=== PATIENT | female | born 1960 | race Caucasian/White ===

== ENCOUNTER → 2016-04-28 | Outpatient (CLI) | payer OTHER ==
[~2016-04-28] MED LIST: ESTCR PO; PRLSR20 PO
[2016-04-28 15:15] LABS: INFLUENZA A PCR Neg for Influ A (NEG); INFLUENZA B PCR Neg for Influ B (NEG)
== END | disposition home or self-care (01) ==
LOC: C.LABPVFM 09:46
PROVIDERS: ATTEND Family Medicine
DX: L71.9 Rosacea, unspecified (principal)

== ENCOUNTER → 2016-07-04 | Outpatient (CLI) | payer OTHER ==
--- NOTE | 2016-07-05 15:02 | MAMMOGRAPHY REPORT ---
BILATERAL DIGITAL SCREENING MAMMOGRAM TOMOSYNTHESIS WITH CAD: 07/04/2016 CLINICAL HISTORY: Routine screening examination. TECHNIQUE: Breast tomosynthesis in addition to standard 2D mammography was performed. Current study was also evaluated with a Computer Aided Detection (CAD) system. COMPARISON: Comparison is made to exams dated: 06/22/2015 mammogram, 03/16/2015 ultrasound, 03/16/20 15 mammogram, 06/16/2014 mammogram, 06/10/2013 mammogram, and 06/04/2012 mammogram - [facility]. BREAST COMPOSITION: The tissue of both breasts is heterogeneously dense, which may obscure small ma sses. FINDINGS: No suspicious mass, architectural distortion or cluster of microcalcifications is seen. IMPRESSION: ACR BI-RADS CATEGORY 1: NEGATIVE There is no mammographic evidence of malignancy. A 1 year screening mammogram is recommended. The p atient will receive written notification of the results. Approximately 10% of breast cancers are not detected with mammography. A negative mammographic repor t should not delay biopsy if a clinically suggestive mass is present. Maddie wild/tre:07/04/2016 17:19:34 Field Producer: Geraldine JOYCE(Silvestre)(Brian), [facility] letter sent: Normal 1/2 BI-RADS Code: ACR BI-RADS Category 1: Negative
== END | disposition home or self-care (01) ==
LOC: C.MAMM 16:59
PROVIDERS: ATTEND Obstetrics & Gynecology
DX: Z12.31 Encounter for screening mammogram for malignant neoplasm of breast (principal)

== ENCOUNTER → 2016-08-18 | Outpatient (CLI) | payer OTHER ==
[2016-08-18 13:09] LABS: BLOOD UREA NITROGEN 9 mg/dl (7-18); BUN/CREATININE RATIO 13.7 (10-20); CARBON DIOXIDE 29 mmol/L (21-32); CHLORIDE 106 mmol/L (98-107); CHOLESTEROL 181 mg/dl (0-200); CREATININE 0.67 mg/dl (0.60-1.20); GLUCOSE 77 mg/dl (70-99); POTASSIUM 3.7 mmol/L (3.5-5.1); SODIUM 141 mmol/L (136-145); TRIGLYCERIDES 51 mg/dl (0-150); VERY LOW DENSITY LIPOPROT CALC 10 mg/dl
[2016-08-18 13:10] LABS: CALCIUM 8.9 mg/dl (8.5-10.1)
[2016-08-18 13:13] LABS: CHOLESTEROL/HDL RATIO 3.5; HDL CHOLESTEROL 51 mg/dl; LDL CHOLESTEROL CALCULATED 120 mg/dl
== END | disposition home or self-care (01) ==
LOC: C.LABPVFM 08:20
PROVIDERS: ATTEND Nurse Practitioner
DX: R42 Dizziness and giddiness (principal); Z13.1 Encounter for screening for diabetes mellitus; Z13.220 Encounter for screening for lipoid disorders

== ENCOUNTER → 2017-07-10 | Outpatient (CLI) | payer OTHER ==
--- NOTE | 2017-07-11 14:56 | MAMMOGRAPHY REPORT ---
BILATERAL DIGITAL SCREENING MAMMOGRAM TOMOSYNTHESIS WITH CAD: 07/10/2017 CLINICAL HISTORY: Routine screening. Patient has no complaints. TECHNIQUE: Breast tomosynthesis in addition to standard 2D mammography was performed. Current study was also evaluated with a Computer Aided Detection (CAD) system. COMPARISON: Comparison is made to exams dated: 07/04/2016 mammogram, 06/22/2015 mammogram, 03/16/2015 ultrasound, 03/16/2015 mammogram, and 06/16/2014 mammogram - [facility]. BREAST COMPOSITION: The tissue of both breasts is heterogeneously dense, which may obscure small mas ses. FINDINGS: No suspicious masses, calcifications, or areas of architectural distortion are noted in ei ther breast. There has been no significant interval change compared to prior exams. IMPRESSION: ACR BI-RADS CATEGORY 1: NEGATIVE There is no mammographic evidence of malignancy. A 1 year screening mammogram is recommended. The pa tient will receive written notification of the results. Approximately 10% of breast cancers are not detected with mammography. A negative mammographic report should not delay biopsy if a clinically suggestive mass is present. Anya Calzada M.D. /:07/11/2017 07:36:07 Shaping Machine Tender: Geraldine JOYCE(Silvestre)(Brian), [facility] letter sent: Normal 1/2 BI-RADS Code: ACR BI-RADS Category 1: Negative
== END | disposition home or self-care (01) ==
LOC: C.MAMM 17:01
PROVIDERS: ATTEND Obstetrics & Gynecology
DX: Z12.31 Encounter for screening mammogram for malignant neoplasm of breast (principal)

== ENCOUNTER 2021-02-25 18:50 | Observation (INO) ==
[2021-02-25] MEDS ORDERED: ONDANSETRON INJ 2 MG/ML 2 ML VIAL IV STA (19:20)
[2021-02-25] MEDS ORDERED: ONDANSETRON INJ 2 MG/ML 2 ML VIAL ONE (19:22)
--- NOTE | 2021-02-25 20:17 | Emergency Department Note ---
History of Present Illness General Chief complaint: Fall Time Seen by Provider: 02/25/21 19:59 Source: patient and family History of Present Illness Provider complaint: Syncopal episode Onset (ago): hour(s) Location: head Pain Consistency: + now resolved Maximum Pain Intensity: 0 Quality: + other (Passed out twice) Relieved By: + none Associated symptoms: + cough, + fever/chills and + syncope; no chest pain, no nausea/vomiting or no shortness of breath This is a 60-year-old female diagnosed with COVID-19 recently presenting with 2 syncopal episodes starting at 4:30 PM today. She was with her boyfriend when she passed out. He was able to catch her before she fell to the ground. She did not have any seizure-like activity. She had a second syncopal episode about an hour later. Again she did not have any trauma from this. Her boyfriend was with her. She has had Covid symptoms since February 17. She has had a fever and cough but denies any shortness of breath. She has had loss of taste and smell as well as diarrhea. She states she was going to the bathroom to have diarrhea when she passed out. She denies any abdominal pain, chest discomfort or shortness of breath. She denies any urinary symptoms. She states she just feels very tired right now. She is not vaccinated for COVID-19 stating that she just did not want the vaccination. She does state that she slept 6 hours last night. Home Medications Medication Instructions Recorded Confirmed Type blood sugar diagnostic (Easy Touch #50 ea 02/03/19 02/20/21 Rx Test Strip) blood-glucose meter (Easy Touch #1 ea 02/03/19 02/20/21 Rx Glucose Monitor) lancets 30 gauge (Easy Comfort #50 ea 02/03/19 02/20/21 Rx Lancets) omeprazole 20 mg capsule,delayed See Rx Instructions .ROUTE 12/13/20 02/25/21 Rx release .COMPLEX #90 cap amoxicillin 875 mg-potassium 1 tab PO Q12H #20 tab 02/08/21 02/25/21 Rx clavulanate 125 mg tablet (Augmentin) prednisone 20 mg tablet See Rx Instructions PO .COMPLEX 02/08/21 02/25/21 Rx #30 tab codeine 10 mg-guaifenesin 100 mg/5 5 ml PO Q6H PRN #118 ml 02/20/21 02/25/21 Rx mL oral liquid Allergies Allergy/AdvReac Type Severity Reaction Status Date / Time No Known Allergies Allergy Unknown Verified 02/25/21 20:29 Past Med/Surg History Medical History (Updated 02/25/21 @ 23:32 by Sarthak Florian MD) Atrophic vaginitis Cancer BCC Cellulitis of right upper eyelid Chest wall pain Dermatitis Dyspareunia Fatigue Hypoglycemia Rib contusion Sensation of foreign body in esophagus Shingles Weight gain Surgical History History of appendectomy History of colonoscopy History of tooth extraction History of total abdominal hysterectomy and bilateral salpingo-oophorectomy Hx of section Hx of laparoscopy Hx of LASIK Family History Father Diabetes Mother Bile duct cancer Diabetes Father Prostate cancer Sister History of prediabetes Other Colitis Denies family history of Ovarian cancer Breast cancer Colorectal cancer Social History Smoking Status: Former smoker Cigarettes Per Day: QUIT 26 YEARS AGO; Second Hand Exposure: No; Hx Alcohol Use: No Hx Substance Use: No Preferred Language: Ugandan Communication Ability: Effective Food Technology Teacher Required: No Beliefs That Will Affect Care: None Current Living Situation: Alone Feels Safe at Home: Yes Assistive Devices: Glasses Review of Systems See HPI for pertinent positives & negatives. and A total of 10 systems reviewed and were otherwise negative Physical Exam Vital Signs Vital Signs - 24 hr 02/25/21 18:58 02/25/21 21:05 02/25/21 21:08 Temperature 36.9 C Temperature Source Temporal Artery Scan Pulse Rate - Lying 74 Pulse Rate - Sitting 84 Pulse Rate - Standing 89 Pulse Rate 76 Pulse Rate [Left Apical] 73 Pulse Rhythm [Left Apical] Regular Pulse Strength [Left Apical] Normal Respiratory Rate 16 16 Respiratory Effort / Characteristics Non-Labored Respiratory Depth Normal Blood Pressure - Lying 108/60 Blood Pressure - Sitting 117/74 Blood Pressure- Standing 114/62 Blood Pressure 106/60 Blood Pressure [Left Arm] 114/62 Blood Pressure Mean 75 Blood Pressure Mean [Left Arm] 79 Blood Pressure Position Sitting Pulse Oximetry 98 97 Oxygen Delivery Method Room Air Room Air Sepsis Recent Fever Within 48 Hours No Sepsis New/Unexplained Change in Mental Status No Sepsis Action Taken by Nursing No Action Required Constitutional: Vital signs reviewed. Eyes: Pupils are equal round reactive to light. Conjunctiva are noninjected. ENT: Pharynx is clear without erythema or exudate. Mucous membranes are dry. Neck supple without meningeal signs. Respiratory: Clear to auscultation bilaterally. Breath sounds are equal bilaterally. Cardiovascular: Regular rate and rhythm. No rubs or gallops. GI: Soft, nondistended and nontender. Bowel sounds are present. Musculoskeletal: No peripheral edema. No lower extremity tenderness. Integumentary: No cyanosis. or jaundice. Neurological: The patient is drowsy and hypophonic. Psychiatric: Normal affect. Course Administered Medications Sodium Chloride (Nss 1000ml) 1,000 mls @ 125 mls/hr IV .Q8H [facility] Stop: 03/27/21 20:29 Last Admin: 02/25/21 20:52 Dose: 125 mls/hr Documented by: [id number] Discontinued Medications Potassium Chloride (K Finn / Wtr) 10 meq in 100 mls @ 100 mls/hr IV Q1H [facility] Stop: 02/25/21 22:44 Last Admin: 02/25/21 22:26 Dose: 100 mls/hr Documented by: [id number] Infusion: 02/25/21 22:18 Dose: 0 mls/hr Documented by: [id number] Admin: 02/25/21 21:04 Dose: 100 mls/hr Documented by: [id number] Ondansetron HCl (Ondansetron Inj 2 Mg/Ml 2 Ml Vial) 4 mg IV NOW STA Stop: 02/25/21 19:21 Last Admin: 02/25/21 19:44 Dose: 4 mg Documented by: [id number] Ondansetron HCl (Ondansetron Inj 2 Mg/Ml 2 Ml Vial) Confirm Administered Dose 4 mg .ROUTE .STK-MED ONE Stop: 02/25/21 19:23 Last Admin: 02/25/21 19:44 Dose: Not Given Documented by: [id number] Medical Decision Making Differential Diagnosis Vasovagal syncope, orthostatic hypotension, dehydration, pulmonary embolism, dysrhythmia, metabolic derangement Medical Records Attestation: I reviewed the patient's medical records. I did perform a limited focused review of portions of the patient's old chart on the electronic medical record. The patient was seen by her PCP for Covid-like symptoms. She had a positive Covid test at that time on February 20. Home Medications Current Medication List: was personally reviewed by me Laboratory Data Attestation: I reviewed the patient's lab results. Result diagrams: 02/25/21 19:15 02/25/21 19:15 Lab Results 02/25/21 02/25/21 02/25/21 Range/Units 19:15 19:15 19:15 WBC 10.16 (4.8-10.8) K/uL RBC 4.19 L (4.2-5.4) M/uL Hgb 12.1 (12.0-16.0) g/dL Hct 35.1 L (37-47) % MCV 83.8 (80-100) fL MCH 28.9 (25-34) pg MCHC 34.5 (32-36) g/dL RDW Std Deviation 39.6 (36.4-46.3) fL RDW Coeff of Hussein 13.1 (11.5-14.5) % Plt Count 156 (130-400) K/uL MPV 11.1 H (7.4-10.4) fL Immature Gran % (Auto) 0.2 % Neut % (Auto) 81.4 % Lymph % (Auto) 11.9 % Sunflower % (Auto) 6.1 % Eos % (Auto) 0.4 % Baso % (Auto) 0.0 % Neut # (Auto) 8.27 H (1.4-6.5) K/uL Lymph # (Auto) 1.21 (1.2-3.4) K/uL Sunflower # (Auto) 0.62 H (0.11-0.59) K/uL Eos # (Auto) 0.04 (0-0.5) K/uL Baso # (Auto) 0.00 (0-0.2) K/uL Immature Gran # (Auto) 0.02 (0.00-0.02) K/uL D-Dimer Cancelled ABG pH (7.35-7.45) ABG pCO2 (35-46) mmHg ABG pO2 (80-95) mmHg ABG HCO3 (19-24) mmol/L ABG O2 Saturation (90-95) % ABG Base Excess (-9-1.8) mEq/L Geoffrey Test (Pos) Barometric Pressure mm/Hg Oxygen Given Sodium 131 L (136-145) mmol/L Potassium 2.7 L (3.5-5.1) mmol/L Chloride 95 L (98-107) mmol/L Carbon Dioxide 25 (21-32) mmol/L Anion Gap 11.0 (3-11) BUN 7 (7-18) mg/dl Creatinine 0.58 L (0.6-1.2) mg/dl Est Cr Clr Drug Dosing Not Reportable Est GFR ( Amer) 116.1 ml/min Est GFR (Non-Af Amer) 100.2 ml/min BUN/Creatinine Ratio 11.3 (10-20) Glucose 118 H (70-99) mg/dl Calcium 8.8 (8.5-10.1) mg/dl Magnesium 2.0 (1.8-2.4) mg/dl Total Bilirubin 0.4 (0.2-1) mg/dl AST 12 L (15-37) U/L ALT 23 (12-78) Alkaline Phosphatase 49 (45-117) U/L Troponin I < 0.015 (0-0.045) ng/ml Total Protein 6.6 (6.4-8.2) gm/dl Albumin 3.5 (3.4-5.0) gm/dl Globulin 3.1 (2.5-4.0) gm/dl Albumin/Globulin Ratio 1.1 (0.9-2) TSH 1.960 (0.300-4.500) uIu/ml 02/25/21 02/25/21 Range/Units 20:45 22:48 WBC (4.8-10.8) K/uL RBC (4.2-5.4) M/uL Hgb (12.0-16.0) g/dL Hct (37-47) % MCV (80-100) fL MCH (25-34) pg MCHC (32-36) g/dL RDW Std Deviation (36.4-46.3) fL RDW Coeff of Hussein (11.5-14.5) % Plt Count (130-400) K/uL MPV (7.4-10.4) fL Immature Gran % (Auto) % Neut % (Auto) % Lymph % (Auto) % Sunflower % (Auto) % Eos % (Auto) % Baso % (Auto) % Neut # (Auto) (1.4-6.5) K/uL Lymph # (Auto) (1.2-3.4) K/uL Sunflower # (Auto) (0.11-0.59) K/uL Eos # (Auto) (0-0.5) K/uL Baso # (Auto) (0-0.2) K/uL Immature Gran # (Auto) (0.00-0.02) K/uL D-Dimer < 190 ABG pH 7.48 H (7.35-7.45) ABG pCO2 33 L (35-46) mmHg ABG pO2 79 L (80-95) mmHg ABG HCO3 24 (19-24) mmol/L ABG O2 Saturation 96.5 H (90-95) % ABG Base Excess 0.9 (-9-1.8) mEq/L Geoffrey Test POS (Pos) Barometric Pressure 737.5 mm/Hg Oxygen Given ROOM AIR Sodium (136-145) mmol/L Potassium (3.5-5.1) mmol/L Chloride (98-107) mmol/L Carbon Dioxide (21-32) mmol/L Anion Gap (3-11) BUN (7-18) mg/dl Creatinine (0.6-1.2) mg/dl Est Cr Clr Drug Dosing Est GFR ( Amer) ml/min Est GFR (Non-Af Amer) ml/min BUN/Creatinine Ratio (10-20) Glucose (70-99) mg/dl Calcium (8.5-10.1) mg/dl Magnesium (1.8-2.4) mg/dl Total Bilirubin (0.2-1) mg/dl AST (15-37) U/L ALT (12-78) Alkaline Phosphatase (45-117) U/L Troponin I (0-0.045) ng/ml Total Protein (6.4-8.2) gm/dl Albumin (3.4-5.0) gm/dl Globulin (2.5-4.0) gm/dl Albumin/Globulin Ratio (0.9-2) TSH (0.300-4.500) uIu/ml Imaging Data Attestation: I personally reviewed and interpreted this imaging study as follows: My Impression: Chest x-ray per my interpretation shows no acute cardiopulmonary process. ECG Data Attestation: I personally reviewed and interpreted this ECG as follows: Indication: + syncope Rate (beats per minute): 74 Rhythm: + normal sinus ECG [place]: + Normal ECG ST segments: no ST elevation ECG Findings: no PVCs MDM Narrative I did evaluate the patient as noted above. She is presenting with 2 syncopal episodes in the setting of COVID-19 infection. She feels very tired but otherwise has no complaints currently. She has had a cough, loss of taste and smell as well as fever. She denies any chest pain or shortness of breath. IV access was established. I did place an order for continuous cardiac monitoring. The monitor showed normal sinus rhythm at a rate of 78 bpm. I did order and personally review the patient's 12-lead EKG as described above. There is no evidence of preexcitation, dysrhythmia or acute ischemia. I did order and personally reviewed the images of the patient's chest x-ray as described above. Chest x-ray is unremarkable. I did order and review the patient's blood work as noted in the electronic medical record. CBC is unremarkable without leukocytosis or anemia. D-dimer is less than 190. Electrolytes demonstrate a sodium of 131, potassium of 2.7 and chloride of 95. Magnesium is within normal limits. I did treat her with IV KCl x2. LFTs and troponin are unremarkable. TSH is within normal limits. I did reassess the patient. She is not orthostatic. She was given normal saline but still appears weak. She will be hospitalized for further care and evaluation. I did discuss case with the hospitalist and outsole caser. The hospitalist requested an ABG which I ordered. pH is 7.48 PaCO2 is 33 and PaO2 is 79. Impression & Plan Syncope, Acute hypokalemia, Acute hyponatremia, Diarrhea, COVID-19 Discharge Plan Visit Data Chief Complaint: Fall ED Provider: Sarthak Florian Discharge Problem: Syncope, Acute hypokalemia, Acute hyponatremia, Diarrhea, COVID-19 Patient Disposition: Being Evaluated by Hospitalist Forms Stand Alone Forms: My [facility] Prescriptions Prescriptions: No Action prednisone 20 mg tablet See Rx Instructions PO .COMPLEX Qty: 30 RF: 0 amoxicillin-pot clavulanate [Augmentin] 875-125 mg tablet 1 tab PO Q12H Qty: 20 RF: 0 (DME) blood-glucose meter [Easy Touch Glucose Monitor] misc See Rx Instructions .ROUTE .MEDSUPPLY Qty: 1 RF: 0 (DME) Easy Touch Test Strip strip See Rx Instructions .ROUTE .MEDSUPPLY Qty: 50 RF: 3 (DME) lancets [Easy Comfort Lancets] 30 gauge misc See Rx Instructions .ROUTE .MEDSUPPLY Qty: 50 RF: 2 codeine-guaifenesin 10-100 mg/5 mL liquid 5 ml PO Q6H PRN (Reason: cough) Qty: 118 RF: 0 omeprazole 20 mg capsule,delayed release(DR/EC) See Rx Instructions .ROUTE .COMPLEX Qty: 90 RF: 3 Referrals Referrals: Courtney Arroyo CRNP [Primary Care Provider] -
[2021-02-25 20:22] LABS: Eosinophils # (auto) 0.04 K/uL (0-0.5); Eosinophils % (auto) 0.4 %; Hematocrit (blood only) 35.1 % (37-47); Hemoglobin 12.1 g/dL (12.0-16.0); Immature Granulocytes # (auto) 0.02 K/uL (0.00-0.02); Immature Granulocytes % (auto) 0.2 %; Lymphocytes # (auto) 1.21 K/uL (1.2-3.4); Lymphocytes % (auto) 11.9 %; Mean Corpuscular Hemoglobin 28.9 pg (25-34); Mean Corpuscular Hgb Conc 34.5 g/dL (32-36); Mean Corpuscular Volume 83.8 fL (80-100); Mean Platelet Volume 11.1 fL (7.4-10.4); Monocytes # (auto) 0.62 K/uL (0.11-0.59); Monocytes % (auto) 6.1 %; Neutrophils # (auto) 8.27 K/uL (1.4-6.5); Neutrophils % (auto) 81.4 %; Platelet Count 156 K/uL (130-400); RDW Coefficient of Variation 13.1 % (11.5-14.5); RDW Standard Deviation 39.6 fL (36.4-46.3); Red Blood Count 4.19 M/uL (4.2-5.4); White Blood Count 10.16 K/uL (4.8-10.8)
[2021-02-25] MEDS ORDERED: SODIUM CHLORIDE 0.9% 1000ML 1,000 ML IV SCH (20:30)
[2021-02-25 20:42] LABS: Alanine Aminotransferase 23 (12-78); Albumin Level 3.5 gm/dl (3.4-5.0); Aspartate Aminotransferase 12 U/L (15-37); BUN Creatinine Ratio 11.3 (10-20); Blood Urea Nitrogen 7 mg/dl (7-18); Calcium 8.8 mg/dl (8.5-10.1); Carbon Dioxide 25 mmol/L (21-32); Chloride 95 mmol/L (98-107); Est GFR (African American) 116.1 ml/min; Est GFR (Non-African American) 100.2 ml/min; Glucose 118 mg/dl (70-99); Potassium 2.7 mmol/L (3.5-5.1); Sodium 131 mmol/L (136-145)
[2021-02-25 20:52] LABS: Albumin Globulin Ratio 1.1 (0.9-2); Alkaline Phosphatase 49 U/L (45-117); Bilirubin,Total 0.4 mg/dl (0.2-1); Globulin 3.1 gm/dl (2.5-4.0); Total Protein 6.6 gm/dl (6.4-8.2); Troponin I < 0.015 ng/ml (0-0.045)
[2021-02-25] MEDS: POTASSIUM CHLORIDE / WTR 10 MEQ/100 ML PLCT IV SCH ×2 (21:04→22:26)
[2021-02-25 21:06] LABS: D Dimer < 190 ug/L FEU (0-500)
--- NOTE | 2021-02-25 22:55 | History & Physical Report ---
Date of Service February 25, 2021 Assessment & Plan (1) Syncope: Plan: 60 yo F w/ pMHx. of Mitral valve prolapse, GERD, headache, and COVID-19 + presenting for syncopal event X2. Syncope, unclear etiology potentially due to dehydration 2/2 poor intake and diarrhea will also want to rule out cardiac causes including structural or 2/2 electrolyte abnormalities EKG - NSR CXR without acute abnormalities noted troponin nl., TSH nl., CO2 not elevated on blood gas - IVF - ECHO ordered given prior history of mitral prolapse - monitor on a telemetry floor - orthostatic BP's Hypokalemia, K 2.7 likely due to poor intake, vomiting, and diarrhea 2 k-rider - recheck with AM labs and continue to replete COVID-19, not vaccinated symptoms include diarrhea, loss of taste, headache - steroids not indicated as patient is no hypoxic Sinus infection - finish out last day of Augmentin GERD - continue Omeprazole Code: full Diet: regular, IVF DVT: Lovenox History of Present Illness Chief Complaint: syncope Primary Care Provider: DEBI Syedmaynor is here for 2 episodes of syncope. The first episode was at 4:30 PM and she did not notice any dizziness or that the room was spinning but felt, "off". She was walking prior to the event and had not just gotten up. She felt tired after the first event and then went to go to the bathroom and had a second event where she lost continence to bowels. She has never passed out prior. She was feeling tired and weak after regaining consciousness. She was diagnosed with mitral prolapse 15-20 years ago. She did not hit her head and did not have any shaking or seizure like activity with the event. She did not bite her tongue. She was positive for COVID-19 with symptoms that developed on February 17. She has lost her sense of taste and has not been eating much over the last week with 5lbs weight loss. She has also had diarrhea and has a cough. She does not have shortness of breath. She admits to a headache that has been going on for the last 2 weeks that is not the, "worst headache of her life". Allergies Allergy/AdvReac Type Severity Reaction Status Date / Time No Known Allergies Allergy Unknown Verified 02/25/21 20:29 Home Medications Medication Instructions Recorded Confirmed Type blood sugar diagnostic (Easy Touch #50 ea 02/03/19 02/20/21 Rx Test Strip) blood-glucose meter (Easy Touch #1 ea 02/03/19 02/20/21 Rx Glucose Monitor) lancets 30 gauge (Easy Comfort #50 ea 02/03/19 02/20/21 Rx Lancets) omeprazole 20 mg capsule,delayed See Rx Instructions .ROUTE 12/13/20 02/25/21 Rx release .COMPLEX #90 cap amoxicillin 875 mg-potassium 1 tab PO Q12H #20 tab 02/08/21 02/25/21 Rx clavulanate 125 mg tablet (Augmentin) prednisone 20 mg tablet See Rx Instructions PO .COMPLEX 02/08/21 02/25/21 Rx #30 tab codeine 10 mg-guaifenesin 100 mg/5 5 ml PO Q6H PRN #118 ml 02/20/21 02/25/21 Rx mL oral liquid Past Med/Surg History Medical History (Updated 02/25/21 @ 23:32 by Sarthak Florian MD) Atrophic vaginitis Cancer BCC Cellulitis of right upper eyelid Chest wall pain Dermatitis Dyspareunia Fatigue Hypoglycemia Rib contusion Sensation of foreign body in esophagus Shingles Weight gain Surgical History History of appendectomy History of colonoscopy History of tooth extraction History of total abdominal hysterectomy and bilateral salpingo-oophorectomy Hx of section Hx of laparoscopy Hx of LASIK Family History Father Diabetes Mother Bile duct cancer Diabetes Father Prostate cancer Sister History of prediabetes Other Colitis Denies family history of Ovarian cancer Breast cancer Colorectal cancer Social History Smoking Status: Never smoker Cigarettes Per Day: QUIT 26 YEARS AGO; Second Hand Exposure: No; Hx Alcohol Use: No Hx Substance Use: No Preferred Language: Lao Communication Ability: Effective Injection Mold Technician Required: No Beliefs That Will Affect Care: None Current Living Situation: Significant Other Feels Safe at Home: Yes Assistive Devices: None Review of Systems Review of Systems: Constitutional: denies fevers, night sweats admits chills, nausea and 2 episodes of vomiting Head: denies trauma, vision changes Neurologic: denies slurring of speech, focal weakness ENT: denies sore throat admits rhinorrhea, stuffiness Cardiac: denies chest pain, palpitations, leg edema Pulm.: denies shortness of breath, sputum production, hemoptysis admits cough GI: denies indigestion, constipation, blood in stool admits diarrhea : denies urgency, frequency, hematuria Physical Exam Constitutional: well developed and well nourished; no acute distress Eyes: PERRL, conjunctivae normal, anicteric sclerae ENMT: - congestion - no pain on percussion of maxillary or frontal sinus - TM's without erythema, fluid, bulging and normal light reflex without pain on pulling on the tragus or pressing on the mastoid process Neck: normal visual inspection Respiratory: normal respiratory effort, lungs clear to auscultation Cardiovascular: RRR, no murmur, no edema Gastrointestinal (Abdomen): normal bowel sounds, soft, nontender, no hepatosplenomegaly Musculoskeletal: Head/Neck/Chest: normocephalic and head atraumatic Neurologic: CN's II-XI intact bilaterally; not confused Speech / Cognition: normal speech Motor/Sensory: no tremor and normal movement Psychiatric: A+Ox3, euthymic affect Results & Data Results & Data ([facility]) Vital Signs (Past 12 Hours) Vital Signs Temp Pulse Pulse Resp BP BP Pulse Ox 02/25/21 21:08 73 16 114/62 97 02/25/21 18:58 36.9 C 76 16 106/60 98 Code Status & VTE Plan VTE Prophylaxis Plan VTE Prophylaxis will be ordered: Yes Supervising Physician Co-Signing Physician Notes Patient seen and examined, discussed with resident and I agree with the assessment and plan as above Resident Activity Tracking Resident Involvement: Resident Care Provided Care Provided: Adult Hospital Medicine
[2021-02-25 23:00] LABS: Base Excess ABG 0.9 mEq/L (-9-1.8); HCO3 ABG 24 mmol/L (19-24); Oxygen Saturation ABG 96.5 % (90-95); PCO2 ABG 33 mmHg (35-46); PO2 ABG 79 mmHg (80-95); pH ABG 7.48 (7.35-7.45)
[2021-02-25 23:02] LABS: Allen Test POS (Pos)
[2021-02-26 00:05] LABS: Appearance Urine Cloudy (Clear); Bacteria Urine Automated Negative (Negative); Bilirubin Urine Negative (Negative); Blood Urine Negative (Negative); Color Urine Yellow; Epithelial Cell Urine Auto 20-30 /lpf (0-5); Glucose Urine UA Negative (Negative); Ketones Urine 2+ (Negative); Leukocyte Esterase Urine Negative (Negative); Nitrite Urine Negative (Negative); Protein Urine Negative (Negative); RBC Urine Automated 0-4 /hpf (0-4); Specific Gravity Urine 1.012 (1.000-1.030); Urobilinogen Urine Negative (Negative); pH Urine 7.5 (4.5-7.5)
[2021-02-26] MEDS ORDERED: ACETAMINOPHEN 325 MG TAB PO PRN (01:08)
[2021-02-26] MEDS ORDERED: POLYETHYLENE (MIRALAX) 17 GM PACK PO PRN (01:08)
[2021-02-26] MEDS ORDERED: PATIENT'S HEIGHT AND/OR WEIGHT NEEDED STA (01:15)
[2021-02-26] MEDS: ENOXAPARIN INJ 40 MG/0.4 ML SYR SQ SCH ×3 (03:01→20:17)
[2021-02-26] MEDS: AMOXICILLIN/CLAVULANATE 875 MG TAB PO SCH ×2 (03:01→16:00)
[2021-02-26] MEDS: SODIUM CHLORIDE 0.9% 1000ML 1,000 ML IV SCH ×2 (03:02→11:45)
[2021-02-26 06:49] LABS: Eosinophils # (auto) 0.01 K/uL (0-0.5); Eosinophils % (auto) 0.2 %; Hematocrit (blood only) 32.3 % (37-47); Hemoglobin 11.1 g/dL (12.0-16.0); Immature Granulocytes # (auto) 0.01 K/uL (0.00-0.02); Immature Granulocytes % (auto) 0.2 %; Lymphocytes # (auto) 1.07 K/uL (1.2-3.4); Lymphocytes % (auto) 21.9 %; Mean Corpuscular Hgb Conc 34.4 g/dL (32-36); Mean Corpuscular Volume 84.3 fL (80-100); Mean Platelet Volume 9.7 fL (7.4-10.4); Monocytes # (auto) 0.47 K/uL (0.11-0.59); Monocytes % (auto) 9.6 %; Neutrophils # (auto) 3.33 K/uL (1.4-6.5); Neutrophils % (auto) 68.1 %; Platelet Count 162 K/uL (130-400); RDW Coefficient of Variation 13.2 % (11.5-14.5); RDW Standard Deviation 40.6 fL (36.4-46.3); Red Blood Count 3.83 M/uL (4.2-5.4); White Blood Count 4.89 K/uL (4.8-10.8)
[2021-02-26 07:10] LABS: BUN Creatinine Ratio 9.8 (10-20); Calcium 8.6 mg/dl (8.5-10.1); Creatinine Clr Calc Pharmacy 107.6 ml/min; Est GFR (African American) 125.3 ml/min; Est GFR (Non-African American) 108.1 ml/min; Potassium 3.3 mmol/L (3.5-5.1)
[2021-02-26] MEDS: PANTOprazole 40 MG TAB PO SCH (08:27)
[2021-02-26] MEDS: POTASSIUM CHLORIDE CRTAB 20 MEQ TABCR PO SCH ×3 (08:27→20:16)
--- NOTE | 2021-02-26 11:10 | XRay Report ---
XR chest 1V portable HISTORY: weakness, COVID COMPARISON: Chest and right rib series 02/19/2018. FINDINGS: The lungs are clear. Cardiac silhouette is normal in size. No pleural effusions. No pneumot horax. IMPRESSION: No acute process. ACT 112: Negative or not required by law. Electronically signed by: Satnam Ash M.D. 02/26/2021 11:08 AM
--- NOTE | 2021-02-26 13:01 | Electrocardiogram Report ---
Test Reason : Blood Pressure : / mmHG Vent. Rate : 074 BPM Atrial Rate : 074 BPM P-R Int : 156 ms QRS Dur : 074 ms QT Int : 388 ms P-R-T Axes : 082 029 062 degrees QTc Int : 430 ms Poor data quality, interpretation may be adversely affected Normal sinus rhythm Normal ECG When compared with ECG of 24-APR-2006 17:23, No significant change was found Confirmed by Cam Trujillo ([id number]) on 02/26/2021 1:01:09 PM Referred By: REFERRED SELF Confirmed By:Cam Trujillo
--- NOTE | 2021-02-26 17:44 | Hospitalist Progress Note ---
Date of Service February 26, 2021 Assessment & Plan (1) Syncope: Plan: 60 yo F w/ pMHx. of Mitral valve prolapse, GERD, headache, and COVID-19 + presenting for 2 episodes of syncope in the setting of Covid positive, diarrhea, and poor p.o. intake. Syncope, suspect 2/2 volume depletion 2/2 poor intake and diarrhea EKG: Normal sinus rhythm CXR: No acute abnormalities. Of note no patchy airspace opacities consistent with early/worsening Covid Troponin within normal limits TSH normal No hypercapnia on admission Echo pending Patient with 2 episodes of lightheadedness but no recurrent syncope since being in the hospital, normotensive Continue to monitor on telemetry, follow-up with echo above (2) Acute hypokalemia: Plan: Hypokalemic to 2.7 Poor p.o. intake, increased diarrhea Received 20 Meq IV infusion on admission, repeat remains hypokalemic at 3.3 P.o. improving, additional repletion ordered Recheck BMP in morning (3) COVID-19: Plan: COVID-19 positive CXR without acute findings No hypoxia/oxygen requirement On approximate day 10 of illness Has not been vaccinated No transaminitis No steroids/remdesivir/immunomodulators indicated at this time Monoclonal antibodies not indicated as patient has been admitted to the hospital Patient recently finished a course of Augmentin for sinus infection Lovenox DVT prophylaxis while inpatient Plan: Code: full Diet: regular, IVF DVT: Lovenox Admission and Anticipated Discharge Date Admission Date: February 25, 2021 Subjective Seen at bedside, continues to have 2 episodes of lightheadedness but no syncope today. Denies fever/chills/sweats. Endorses loss of taste and onset of Covid symptoms approximately 5. No hypoxia. Has had diarrhea with a cough. No shortn ess of breath/difficulty breathing, discussed etiology and potential causes of syncope, patient extremely concerned by her symptoms and would prefer to wait for completion of echo and for 24 hours of arrhythmia monitoring. Given diarrhea, acute hypokalemia, and been eval reasonable and will continue to observe overnight. No additional questions at time of assessment Review of Systems Review of Systems: 10 point review of systems negative except as noted otherwise and in subjective Physical Exam Physical Exam: General: A&Ox3. NAD. Cooperative. HEENT: Atraumatic, normocephalic. Visual acuity and hearing grossly intact. Pulm: CTAB A&P. -wheezes, -rales, -rhonchi. Symmetrical chest rise. No increase work of breathing. No respiratory distress. +sinus congestion, +dry cough Cardiac: RRR, -mrg. Radial pulses intact and symmetrical. Abdominal: Nontender, nondistended, soft. BS present. PG Care Time/CCT Total # of Minutes Spent Total Time Spent with Patient: Total time spent is greater than 50% in coordination of care (as documented) at patient's floor/unit and/or counseling patient: Coding Level of Care Code 35110 Subseq Obs Care Lvl 2 Diagnoses Syncope R55 Syncope type: unspecified Acute hypokalemia E87.6 COVID-19 U07.1 (1) Syncope Syncope type: unspecified Qualified Code(s): R55 - Syncope and collapse
--- NOTE | 2021-02-27 06:08 | Billing Data ---
Date of Service February 25, 2021 Coding Level of Care Code INT OBSERVATION CARE 50M LVL 2
[2021-02-27 08:13] LABS: BUN Creatinine Ratio 9.2 (10-20); Calcium 8.4 mg/dl (8.5-10.1); Creatinine Clr Calc Pharmacy 103.1 ml/min; Est GFR (African American) 123.6 ml/min; Est GFR (Non-African American) 106.6 ml/min; Magnesium 2.1 mg/dl (1.8-2.4); Potassium 3.6 mmol/L (3.5-5.1)
[2021-02-27] MEDS: ENOXAPARIN INJ 40 MG/0.4 ML SYR SQ SCH (09:20)
[2021-02-27] MEDS: PANTOprazole 40 MG TAB PO SCH (09:39)
--- NOTE | 2021-02-27 12:18 | Discharge Summary ---
Date of Service February 27, 2021 Admission HPI Per Admitting Provider Tayler Chery is here for 2 episodes of syncope. The first episode was at 4:30 PM and she did not notice any dizziness or that the room was spinning but felt, "off". She was walking prior to the event and had not just gotten up. She felt tired after the first event and then went to go to the bathroom and had a second event where she lost continence to bowels. She has never passed out prior. She was feeling tired and weak after regaining consciousness. She was diagnosed with mitral prolapse 15-20 years ago. She did not hit her head and did not have any shaking or seizure like activity with the event. She did not bite her tongue. She was positive for COVID-19 with symptoms that developed on February 17. She has lost her sense of taste and has not been eating much over the last week with 5lbs weight loss. She has also had diarrhea and has a cough. She does not have shortness of breath. She admits to a headache that has been going on for the last 2 weeks that is not the, "worst headache of her life". Admission Exam Per Admitting Provider Constitutional: well developed and well nourished; no acute distress Eyes: PERRL, conjunctivae normal, anicteric sclerae ENMT: - congestion - no pain on percussion of maxillary or frontal sinus - TM's without erythema, fluid, bulging and normal light reflex without pain on pulling on the tragus or pressing on the mastoid process Neck: normal visual inspection Respiratory: normal respiratory effort, lungs clear to auscultation Cardiovascular: RRR, no murmur, no edema Gastrointestinal (Abdomen): normal bowel sounds, soft, nontender, no hepatosplenomegaly Musculoskeletal: Head/Neck/Chest: normocephalic and head atraumatic Neurologic: CN's II-XI intact bilaterally; not confused Speech / Cognition: normal speech Motor/Sensory: no tremor and normal movement Psychiatric: A+Ox3, euthymic affect Principal Diagnosis Volume depletion Syncope Discharge Exam General: A&Ox3. NAD. Cooperative. HEENT: Atraumatic, normocephalic. Visual acuity and hearing grossly intact. Pulm: CTAB A&P. -wheezes, -rales, -rhonchi. Symmetrical chest rise. No increase work of breathing. No respiratory distress. +sinus congestion, +dry cough Cardiac: RRR, -mrg. Radial pulses intact and symmetrical. Abdominal: Nontender, nondistended, soft. BS present. Discharge Data Allergies Allergy/AdvReac Type Severity Reaction Status Date / Time No Known Allergies Allergy Unknown Verified 02/25/21 20:29 Consultations 02/25/21 21:44 ED Decision to Admit Stat Hospital Course (1) Syncope: 60 yo F w/ pMHx. of Mitral valve prolapse, GERD, headache, and COVID-19 + presenting for 2 episodes of syncope in the setting of Covid positive, diarrhea, and poor p.o. intake. To do as outpatient: 1. Routine follow-up with PCP 2. Routine Covid precautions, patient will call work and notify of illness 3. Continue to monitor for symptoms. Suspect vasovagal syncope was experienced in the setting of acute dehydration and Covid illness. If recurrent episodes develop, recommend follow-up and 30-day event monitor Syncope, suspect 2/2 volume depletion 2/2 poor intake and diarrhea EKG: Normal sinus rhythm CXR: No acute abnormalities. Of note no patchy airspace opacities consistent with early/worsening Covid Troponin within normal limits TSH normal No hypercapnia on admission Echo deferred. Initially ordered, canceled on discussion with cardiology Patient with 2 episodes of lightheadedness but no recurrent syncope since being in the hospital, normotensive No arrhythmia appreciated on telemetry during admission (2) Acute hypokalemia: Hypokalemic to 2.7 Poor p.o. intake, increased diarrhea Received 20 Meq IV infusion on admission, repeat remains hypokalemic at 3.3 P.o. improving, additional repletion ordered Normalized day of discharge (3) COVID-19: COVID-19 positive CXR without acute findings No hypoxia/oxygen requirement On approximate day 10 of illness at time of admission Has not been vaccinated No transaminitis No steroids/remdesivir/immunomodulators indicated at this time Monoclonal antibodies not indicated as patient has been admitted to the hospital Patient recently finished a course of Augmentin for sinus infection Lovenox DVT prophylaxis while inpatient Code: full Diet: regular, IVF DVT: Lovenox Total Time Total Time Spent Total Time Spent (In Minutes): Total time spent day of discharge 35 minutes including direct patient care review of labs and images coordination of care and documentation Discharge Plan Discharge Items Patient Disposition: Home - Self-Care Reason For Visit: SYNCOPE Discharge Diagnosis: Syncope COVID-19 Activity: Per Instructions section Non-emergency contact: Primary Care Provider Call non-emergency contact if: you have any medication questions Follow-up/Referrals: Courtney Arroyo CRNP [Primary Care Provider] - Diet: Regular Addtl Attending Provider Instructions: You were seen in the hospital for 2 episodes of syncope (passing out) and were found to be positive for Covid and dehydrated on admission. You were treated with fluids and electrolyte repletion and clinically improved. Your Covid symptoms were mild, and you did not require supplemental oxygen. Additional steroids and Covid medications were not indicated at the time of your hospitalization, some people experience worsening of their Covid symptoms around day 812 of illness us if you have any additional/new/concerning symptoms including those as noted below please follow-up with your primary care physician or return for reevaluation. You were monitored on telemetry (heart rhythm monitoring) overnight and no abnormal heart rhythm was appreciated. Rarely an intermittent abnormal heart rhythm can cause people to pass out. While this is less likely and more likely dehydration led to passing out, if you continue experience symptoms you should have a 30-day event monitor set up by your outpatient physician to follow for infrequent arrhythmia. Your potassium was low on admission. This is likely due to poor oral intake and some diarrhea. You received a small amount of potassium repletion and your potassium levels returned to normal the next day. Additional repletion was not indicated. No new medications were indicated/prescribed at time of discharge. Some people can have a cardiac abnormality leading to passing out. This was discussed with cardiology and a ultrasound was ordered, on review of your labs this was not recommended and was discontinued by the cardiology team. If you have recurrent symptoms in the future this may be reconsidered at that time. A followup appointment is being scheduled for you with your primary care provider. You should be seen seen within 1 week. You should receive a call to confirm this appointment. If you do not receive a call within 48 hours to confirm this appointment, or need to change this appointment, please call the provider's office at the number above. If you develop any new or worsening symptoms including fever, chills, sweats, chest pain, chest pressure, difficulty breathing, uncontrolled nausea/vomiting, rash, wheezing, passing out or nearly passing out, bleeding, black/bloody bowel movements, or other new or concerning symptoms please call your primary care physician, or call 911 for re-evaluation in the emergency department if you are very concerned. Pending Studies at Discharge: No Stand-Alone Forms: [facility], Smoking Cessation Medications and DC Order Prescriptions: Continued prednisone 20 mg tablet See Rx Instructions PO .COMPLEX Qty: 30 RF: 0 (DME) blood-glucose meter [Easy Touch Glucose Monitor] misc See Rx Instructions .ROUTE .MEDSUPPLY Qty: 1 RF: 0 (DME) Easy Touch Test Strip strip See Rx Instructions .ROUTE .MEDSUPPLY Qty: 50 RF: 3 (DME) lancets [Easy Comfort Lancets] 30 gauge misc See Rx Instructions .ROUTE .MEDSUPPLY Qty: 50 RF: 2 codeine-guaifenesin 10-100 mg/5 mL liquid 5 ml PO Q6H PRN (Reason: cough) Qty: 118 RF: 0 omeprazole 20 mg capsule,delayed release(DR/EC) See Rx Instructions .ROUTE .COMPLEX Qty: 90 RF: 3 Discontinued amoxicillin-pot clavulanate [Augmentin] 875-125 mg tablet 1 tab PO Q12H Qty: 20 RF: 0 Discharge Orders: Discharge Order (Routine); Ordered 02/27/21 Ordered By: Joey Hayes Admission Data Admit Date/Time: 02/25/21 22:50 Attending Provider: Joey Hayes Admit Provider: Adam Tolentino Primary Care Provider: Courtney Arroyo. Other Providers: Camille Garcia Coding Level of Care Code D/C DAY MANAGEMENT >30 MINS Diagnoses Syncope R55 Syncope type: unspecified Acute hypokalemia E87.6 COVID-19 U07.1
== END 2021-02-27 14:23 | disposition home or self-care (01) ==
LOC: ED 18:50 → EDINP 18:50 → SUATTDRO 22:50 → ED 02-26 01:07 → EDINP 02-26 01:07 → ED 02-27 14:23
DX: Z79.899 Other long term (current) drug therapy; E87.6 Hypokalemia; R55 Syncope and collapse; Z87.891 Personal history of nicotine dependence; E86.0 Dehydration; E16.2 Hypoglycemia, unspecified; I34.1 Nonrheumatic mitral (valve) prolapse; U07.1 COVID-19; Z83.3 Family history of diabetes mellitus; Z80.0 Family history of malignant neoplasm of digestive organs; E87.1 Hypo-osmolality and hyponatremia; K21.9 Gastro-esophageal reflux disease without esophagitis; R19.7 Diarrhea, unspecified